=== PATIENT | male | born 1990 | race Two or more races ===

== ENCOUNTER 2019-04-15 12:03 | Emergency (ER) | payer SELFPAY ==
[2019-04-15] MEDS ORDERED: DIPH/PERTUSS(ACELL)/TETANUS VAC/PF 0.5 ML SYR (>=10YO) IM ONE (13:55)
[2019-04-15] MEDS ORDERED: HYDROCODONE/ACETAMINOPHEN 5-325 MG TABLET PO ONE (13:55)
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
[2019-04-15 15:43] VITALS: BP 128/64
== END 2019-04-15 15:44 | disposition home or self-care (01) ==
LOC: ER 12:03
DX: S01.511A Laceration without foreign body of lip, initial encounter (principal); S16.1XXA Strain of muscle, fascia and tendon at neck level, initial encounter; S20.211A Contusion of right front wall of thorax, initial encounter; H11.32 Conjunctival hemorrhage, left eye; Y04.2XXA Assault by strike against or bumped into by another person, initial encounter; Y92.59 Other trade areas as the place of occurrence of the external cause
CPT/HCPCS: 70486; 72050; 90471; 90715; 99284